=== PATIENT | male | born 1945 | race Caucasian/White ===

== ENCOUNTER 2020-06-15 16:06 | Emergency (ER) | payer MEDICARE, OTHER ==
[~2020-06-15 16:06] MED LIST: Iopamidol-370 76% 500 ML 1 ML ONE
[2020-06-15] MEDS ORDERED: Azithromycin 500 MG VIAL ONE (17:15)
[2020-06-15] MEDS ORDERED: Dexamethasone 4 mg/ml Vial ONE (17:15)
[2020-06-15 17:36] LABS: #Lymphocytes 1.1 thou/uL (1.20-3.40); #Monocytes 0.5 thou/uL (0.11-0.59); #Neutrophils 4.7 thou/uL (1.40-6.50); %Basophils 0.1 % (0.0-1.0); %Eosinophils 0.2 % (0.0-10.0); %Lymphocytes 16.9 % (21.0-51.0); %Monocytes 8.2 % (0.0-10.0); %Neutrophils 74.6 % (42.0-75.0); Hemoglobin 14.6 g/dL (14.0-18.0); Mean Corpuscular HGB CONC 33.7 g/dL (32.0-36.0); Mean Corpuscular Hemoglobin 30.4 pg (27.0-31.0); Mean Corpuscular Volume 90.3 fL (78.0-98.0); Platelet Count 158 thou/uL (130-400); RBC Distribution Width 12.1 % (11.5-14.5); Red Blood Cell (RBC) Count 4.81 mill/uL (4.70-6.10); White Blood Cell (WBC) Count 6.2 thou/uL (4.8-10.8)
--- NOTE | 2020-06-15 17:51 | RAD ---
PORTABLE CHEST: 06/15/20 HISTORY: COVID positive. COMPARISON: An 05/22/16 exam. Heart size is borderline. Mediastinal structures appear unremarkable. Bilateral infiltrative lung paulo nges are seen. IMPRESSION: Multifocal infiltrate highly suspicious for COVID pneumonia. POS: DIANE
[2020-06-15 18:00] LABS: ALT (SGPT) 31 U/L (8-55); AST (SGOT) 44 U/L (5-34); Albumin 3.3 g/dL (3.4-4.8); Alkaline Phosphatase 127 U/L (40-110); Anion Gap 15 mmol/L (10-20); BUN (Urea Nitrogen) 21 mg/dL (8.4-25.7); Bilirubin, Total 1.4 mg/dL (0.2-1.2); Calc. Creatinine Clearance 0 mL/min (70-130); Calcium 8.4 mg/dL (7.8-10.44); Carbon Dioxide 24 mmol/L (23-31); Chloride 103 mmol/L (98-107); Globulin 3.1 g/dL (2.4-3.5); Glucose 103 mg/dL (83-110); Potassium 3.8 mmol/L (3.5-5.1); Protein, Total 6.4 g/dL (5.8-8.1); Sodium 138 mmol/L (136-145)
--- NOTE | 2020-06-15 20:07 | CT ---
CTA Angio Chest W WO Con History: Dyspnea Comparison: Chest radiograph same day Findings: CT angiogram chest performed after the intravenous administration of contrast. 3-D renderin g provided. No proximal segmental pulmonary arterial filling defect. Abnormal adenopathy throughout the chest wit h right paratracheal lymph node axial image 34 measuring up to 13 mm short axis. Subcarinal lymph nodes axial image 56 measuring up to 1 cm in short axis. AP window lymph nodes measure up to 8 mm oly rt axis. Right suprahilar lymph nodes measure up to 11 mm in short axis. No pericardial effusion. Spleen appears be enlarged although incompletely evaluated. Extensive groundglass opacities throughout the periphery of the lungs. No pneumothorax. No significan t pleural effusion. Thoracic spine, sternum, and manubrium are all intact. No acute displaced rib fracture. Impression: 1. No pulmonary embolism. 2. Commonly reported imaging findings of Covid-19 pneumonia. 3. Abnormally enlarged mediastinal lymph nodes, largest in the paratracheal region. Nonemergent follo w-up CT recommended after resolution of acute symptomatology.
== END 2020-06-15 22:43 ==
LOC: ERS 16:06
DX: U07.1 COVID-19 (principal); E78.5 Hyperlipidemia, unspecified; E78.00 Pure hypercholesterolemia, unspecified; N40.0 Benign prostatic hyperplasia without lower urinary tract symptoms; K21.9 Gastro-esophageal reflux disease without esophagitis
CPT/HCPCS: 36415; 71045; 71275; 80053; 83880; 84484; 85025; 85379; 85652; 86140; 93005; 94760; 96365; 96366; 96375; J0456; J1100; Q9967